=== PATIENT | female | born 1990 | race Two or more races ===

== ENCOUNTER 2017-10-11 12:34 | Inpatient (IN) | payer OTHER ==
[~2017-10-11] VITALS: Ht 157.5 cm; Wt 74.4 kg
[2017-10-11] MEDS ORDERED: PRENATAL TABLE1 EAC1 PO (13:10)
[2017-10-11] MEDS ORDERED: IRON PO (13:11)
[2017-10-14] MEDS ORDERED: PROFERRIN-FORT1 EACH PO (08:52)
[2017-10-14] MEDS ORDERED: NAPR500T14 PO (08:52)
== END 2017-10-14 13:03 | disposition home or self-care (01) | DRG 775 ==
LOC: LDR 12:34 → OB/GYN 10-13 20:21
PROC: 10E0XZZ Delivery of Products of Conception, External Approach (ICD-10-PCS; principal; 2017-10-11)
PROC: 0KQM0ZZ Repair Perineum Muscle, Open Approach (ICD-10-PCS; 2017-10-11)
PROC: 0UQMXZZ Repair Vulva, External Approach (ICD-10-PCS; 2017-10-11)
PROC: 4A033R1 Measurement of Arterial Saturation, Peripheral, Percutaneous Approach (ICD-10-PCS; 2017-10-11)
PROC: 4A1HXCZ Monitoring of Products of Conception, Cardiac Rate, External Approach (ICD-10-PCS; 2017-10-11)
DX: O70.1 Second degree perineal laceration during delivery (principal); Z37.0 Single live birth; O90.81 Anemia of the puerperium; O71.82 Other specified trauma to perineum and vulva; O14.14 Severe pre-eclampsia complicating childbirth; Z3A.41 41 weeks gestation of pregnancy